=== PATIENT | female | born 1935 | race Caucasian/White ===

== ENCOUNTER 2018-05-07 12:24 | Emergency (ER) | payer MEDICARE ==
[2018-05-07 12:44] VITALS: BP 157/113
--- NOTE | 2018-05-07 13:25 | UC ---
Dental HPI - HPI Summary HPI Summary: Patient is an 83-year-old female presenting to the with complaint of left sided upper jaw swelling 2 days. She states this happened to her. In the past , but has spontaneously resolved without medications. She noticed the swelling 2 days ago and is endorsing a mild amount of pain radiating up into the ear. Denies any hearing loss or tinnitus. Patient is a denture wearer states her mouth excessive and dry. Denies any difficulty swallowing or odynophagia. Symptoms are not aggravated with chewing or swallowing, not better with rest. Denies any fevers, sweats, chills or other viral illness. - History of Current Complaint Chief Complaint: UCGeneralIllness Stated Complaint: SWOLLEN JAW Time Seen by Provider: 05/07/18 12:56 Hx Obtained From: Patient ?: No Onset/Duration: Sudden Onset Severity: Mild Pain Intensity: 6 Pain Scale Used: 0-10 Numeric - Allergies/Home Medications Allergies/Adverse Reactions: Allergies Allergy/AdvReac Type Severity Reaction Status Date / Time ciprofloxacin Allergy Unknown Verified 05/07/18 12:36 Reaction Details Influenza Virus Vaccines Allergy Palpitation Verified 05/07/18 12:35 s Home Medications: Home Medications Latanoprost/Pf [Latanoprost 0.005% Eye Drop] 1 drop .SEE ORDER BEDTIME 05/07/18 [History Confirmed 05/07/18] Metoprolol Succinate 50 mg PO DAILY 05/07/18 [History Confirmed 05/07/18] Verapamil HCl [Verapamil ER] 120 mg PO DAILY 05/07/18 [History Confirmed ] Warfarin TAB(*) [Coumadin TAB(*)] 2 mg PO DAILY 05/07/18 [History Confirmed ] PMH/Surg Hx/FS Hx/Imm Hx Previously Healthy: Yes - Surgical History Surgical History: Yes Surgery Procedure, Year, and Place: APPENDECTOMY - Family History Known Family History: Positive: None - Social History Occupation: Unemployed Lives: With Family Alcohol Use: None Substance Use Type: None Smoking Status (MU): Never Smoked Tobacco Review of Systems Constitutional: Negative Skin: Negative ENT: Other - left upper jaw swelling over parotid gland Respiratory: Negative Cardiovascular: Negative Motor: Negative Neurovascular: Negative Neurological: Negative Is Patient Immunocompromised?: No All Other Systems Reviewed And Are Negative: Yes Physical Exam Triage Information Reviewed: Yes Appearance: Well-Appearing, Well-Nourished Vital Signs: Initial Vital Signs Temp 99.5 F 05/07/18 12:39 Pulse 106 05/07/18 12:39 Resp 20 05/07/18 12:39 BP 157/113 05/07/18 12:39 Pulse Ox 97 05/07/18 12:39 Eye Exam: Normal ENT Exam: Normal ENT: Positive: Other - left upper jaw pain over L parotid gland Neck exam: Normal Neck: Positive: Supple Respiratory Exam: Normal Respiratory: Positive: Chest non-tender Musculoskeletal Exam: Normal Musculoskeletal: Positive: Strength Intact Psychological: Positive: Normal Response To Family Skin Exam: Normal Dental Complaint Course/Dx - Course Course Of Treatment: Patient is evaluated for left upper jaw swelling to her clear over the left parotid gland. Patient appears to have a parotid duct obstruction. Patient is given instructions for sour candies and to avoid the use of her dentures until healing. As symptoms have been present over 2 days, she is at risk for an infection I have given her a short course of treatment of clindamycin. She will follow up with ENT for any worsening or changing symptoms. - Differential Dx/Diagnosis Differential Diagnosis/Dx: Dental Caries, Tonsillitis Provider Diagnoses: Parotid gland obstruction Discharge - Sign-Out/Discharge Documenting (check all that apply): Patient Departure All imaging exams completed and their final reports reviewed: No Studies - Discharge Plan Condition: Stable Disposition: HOME Prescriptions: Clindamycin Cap(NF) [Clindamycin Cap 300 mg Cap(NF)] 300 mg PO Q6H #16 cap Patient Education Materials: Parotid Duct Obstruction (ED), Sialoadenitis (ED) Referrals: Matias Liang MD [Primary Care Provider] - Jeanmarie Holt MD [Medical Doctor] - Additional Instructions: Try to avoid using your dentures when possible until area heals Drink plenty of water Cleanse dentures thoroughly Sour candies as much as possible including lemon drops Clindamycin 4 times daily 4 days Please follow-up with ENT I have given you a referral - Billing Disposition and Condition Condition: STABLE Disposition: Home
== END 2018-05-07 13:25 | disposition home or self-care (01) ==
LOC: UCEAST 12:24
DX: K11.8 Other diseases of salivary glands (principal); Z88.1 Allergy status to other antibiotic agents; Z88.7 Allergy status to serum and vaccine
CPT/HCPCS: 99212; G0463

== ENCOUNTER 2019-08-01 15:53 | Emergency (ER) | payer MEDICARE ==
[2019-08-01 16:24] VITALS: BP 153/111
[2019-08-01] MEDS ORDERED: Acetaminophen TAB* 325 MG PO ONE (16:55)
--- NOTE | 2019-08-01 17:03 | UC ---
General HPI - HPI Summary HPI Summary: 84-year-old woman comes in with chief complaint of a fall and left arm pain. Just prior to arrival she tripped on some gravel in her driveway and fell onto her left side and her face. No loss of consciousness she did have a bloody nose. She did strike her nose. Bleeding is stopped bleeding. She is on Coumadin. No weakness no numbness. She has pain in the left upper humerus and decreased range of motion in that area secondary to the pain. Denies any numbness in the hands. No complaint of any shortness of breath or other injuries. - History of Current Complaint Chief Complaint: UCUpperExtremity Stated Complaint: ARM INJURY Time Seen by Provider: 08/01/19 16:48 Pain Intensity: 8 - Allergy/Home Medications Allergies/Adverse Reactions: Allergies Allergy/AdvReac Type Severity Reaction Status Date / Time ciprofloxacin Allergy Unknown Verified 08/01/19 16:25 Reaction Details Influenza Virus Vaccines Allergy Palpitation Verified 08/01/19 16:25 s PMH/Surg Hx/FS Hx/Imm Hx Previously Healthy: Yes - ON COUMADIN Cardiovascular History: Hypertension, Atrial Fibrillation - Surgical History Surgical History: Yes Surgery Procedure, Year, and Place: APPENDECTOMY - Family History Known Family History: Positive: None - Social History Alcohol Use: None Substance Use Type: None Smoking Status (MU): Never Smoked Tobacco - Immunization History Most Recent Tetanus Shot: unknown Review of Systems All Other Systems Reviewed And Are Negative: Yes Constitutional: Positive: Negative Skin: Positive: Negative Eyes: Positive: Negative ENT: Positive: Epistaxis, Other - SEE HPI Respiratory: Positive: Negative Cardiovascular: Positive: Negative Gastrointestinal: Positive: Negative Motor: Positive: Other - SEE HPI Neurovascular: Positive: Negative Musculoskeletal: Positive: Other: - SEE HPI Neurological: Positive: Negative Psychological: Positive: Negative Is Patient Immunocompromised?: No Physical Exam Triage Information Reviewed: Yes Appearance: Well-Appearing, Well-Nourished, Pain Distress - MILD WITH MOVEMENT OF LEFT ARM Vital Signs: Initial Vital Signs Temp 97.8 F 08/01/19 16:18 Pulse 85 08/01/19 16:18 Resp 16 08/01/19 16:18 BP 153/111 08/01/19 16:18 Pulse Ox 96 08/01/19 16:18 Vital Signs Reviewed: Yes Eye Exam: Normal Eyes: Positive: Conjunctiva Clear, Other: - PERRLA EOMI ENT: Positive: Other - Bilateral cerumen impaction. Patient'sswollen with an abrasion. There is dried blood in the nares. I do not see a septal hematoma. Neck: Positive: Nontender Respiratory: Positive: Lungs clear, Normal breath sounds, No respiratory distress Cardiovascular: Positive: RRR Musculoskeletal: Positive: Other: - Patient rolled her left arm at her side. She is very tender to palpation in the proximal humerus. Collar bones are nontender to palpation. Show full range of motion of the fingers and wrists. Normal capillary refill distally. Bilateral radial pulses palpated. Elbows are nontender to palpation however patient has decreased use of the elbow secondary to increased pain in the proximal humerus. Right shoulder is normal range of motion. Neurological: Positive: Alert Psychological: Positive: Age Appropriate Behavior Skin Exam: Normal Course/Dx - Course Course Of Treatment: Airplane Rigger: Flaco Schultz F ([id number]) Hand Counter: KENZIE ( KENZIE) Report Date: 08/01/2019 17:55:00 Report Status: Final ====== Start of Report Content Patient Name: NOLBERTO LEI Medical Record#: [id number] Ordering Physician: Ross Taveras MD Acct.#: [id number] : 03/1935 Age: 84 Sex: F Location: [facility] Exam Date: 08/01/191657 ADM Status: REG ER Order Information: SHOULDER LEFT SINGLE VW Accession Number: [id number] CPT: 25499 INDICATION: Left shoulder injury. TECHNIQUE: A single AP view of the humerus was obtained. FINDINGS: The bones appear osteoporotic. There is a comminuted fracture of the surgical neck of the humerus extends through the region of the greater trochanter. The fracture fragments are displaced and overriding with the shaft of the humerus displaced medial and anterior relative to the humeral head. IMPRESSION: COMMINUTED DISPLACED FRACTURE OF THE PROXIMAL HUMERUS. <Electronically signed by Flaco Schultz MD in OV> 1751 Dictated By: Flaco Schultz MD Dictated Date/Time: 08/01/191749 Transcribed Date/Time: 08/01/191749 Copy to: CC:Matias Liang MD; Ross Taveras MD Imaging - [facility] Imaging - [place] [facility] [address] [address] ph [phone]) ph ) ph ([phone]) End of Report Content Airplane Rigger: Flaco Schultz F, ([id number]) Hand Counter: KENZIE ( NUANCE) Report Date: 08/01/2019 17:57:00 Report Status: Final ====== Start of Report Content Patient Name: NOLBERTO LEI Medical Record#: [id number] Ordering Physician: Ross Taveras MD Acct.#: [id number] : 03/1935 Age: 84 Sex: F Location: [facility] Exam Date: 08/01/191656 ADM Status: REG ER Order Information: HUMERUS LEFT Accession Number: [id number] CPT: 43531 INDICATION: Left humerus injury. COMPARISON: Comparison is made with the prior x-ray study of the left shoulder. TECHNIQUE: 2 views of the left humerus were obtained. FINDINGS: Again note is made of a comminuted displaced fracture of the surgical neck of the humerus extending through the greater trochanter. The fracture fragments are displaced. No additional fracture is seen. IMPRESSION: COMMINUTED DISPLACED FRACTURE OF THE PROXIMAL HUMERUS. < Electronically signed by Flaco Schultz MD in OV> 08/01/191752 Dictated By: Flaco Schultz MD Dictated Date/Time: 08/01/191751 Transcribed Date/Time: 1751 Copy to: CC:Matias Liang MD; Ross Taveras MD Imaging - [facility] Imaging - [place] [facility] [address] [place] [address] ph ([phone]) ph ([phone]) ph ([phone]) ===== End of Report Content Airplane Rigger: Hannah Field S ([id number]) Hand Counter: KENZIE (KENZIE) Report Date: 08/01/2019 17:39:00 Report Status: Final Start of Report Content Patient Name: NOLBERTO LEI Medical Record#: [id number] Ordering Physician: Ross Taveras MD Acct.#: [id number] : 03/1935 Age: 84 Sex: F Location: [facility] Exam Date: 08/01/191654 ADM Status: REG ER Order Information: CT SPINE CERVICAL W/O Accession Number: [id number] CPT: 72038 Indication: Fall, neck injury. CT of the cervical spine performed in the axial plane. Sagittal and coronal reconstructed images were obtained. The skull base demonstrates no fracture. Mastoid air cells is unremarkable. Degenerative changes of the atlantoaxial joint is noted. The vertebral bodies appear normal in height. Disc space narrowing at C5-C6 and C6-C7 is noted. Spinal canal appears to be intact. Old ununited fracture of the C6 spinous process is noted. No recent fracture is identified. IMPRESSION: No fracture of the cervical spine is noted. 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 < Electronically signed by Hannah Field MD in OV> 08/01/191735 Dictated By: Hannah Field MD Dictated Date/Time: 08/01/191734 Transcribed Date/Time: 08/01/191734 Copy to: CC:Matias Liang MD; Ross Taveras MD Imaging - [facility] Imaging - [facility] [address] [address] ph ([phone]) ph ([phone]) ph ([phone]) End of Report Content Airplane Rigger: Flaco Schultz F ([id number]) Hand Counter: KENZIE ( NUANCE) Report Date: 08/01/2019 17:44:00 Report Status: Final ====== Start of Report Content Patient Name: NOLBERTO LEI Medical Record#: [id number] Ordering Physician: Ross Taveras MD Acct.#: [id number] : 03/1935 Age: 84 Sex: F Location: [facility] Exam Date: 08/01/191654 ADM Status: [facility] Order Information: CT MAXILLOFACIAL W/O Accession Number : [id number] CPT: 06213 INDICATION: Facial trauma. COMPARISON: There are no relevant prior studies available for comparison. TECHNIQUE: Contiguous axial sections of the axial images of the facial bones were obtained and reconstructed in the coronal and sagittal planes. FINDINGS: Soft tissue swelling is noted anterior to the frontal sinus and overlying the nose. The butler of the orbits and maxillary sinuses appear intact. The zygomatic arches appear intact. There is no evidence for a fracture of the mandible. 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 The nasal bones appear intact. There is moderate deviation of the nasal septum toward the right side. The pterygoid plates appear intact. The paranasal sinuses appear clear. IMPRESSION: NO EVIDENCE OF FRACTURE. <Electronically signed by Flaco Schultz MD in OV> 08/01/191739 Dictated By: Flaco Schultz MD Dictated Date/Time : 08/01/191735 Transcribed Date/Time: 08/01/191735 Copy to: CC:Matias Liang MD; Ross Taveras MD Imaging - [facility] Imaging - [facility] [id number] [place] [address] ph ([phone]) ph ([phone]) ([phone]) ==== End of Report Content Airplane Rigger: Noah Macario, ([id number]) Hand Counter: KENZIE (ZANEANCE) Report Date: 08/01/2019 17:37:00 Report Status: Final Start of Report Content Patient Name: NOLBERTO LEI Medical Record#: [id number] Ordering Physician: Ross Taveras MD Acct.#: [id number] : 03/1935 Age: 84 Sex: F Location: [facility] Exam Date: 08/01/191654 ADM Status: REG ER Order Information: CT BRAIN WO Accession Number: [id number] CPT: 74811 INDICATION: Fall. COMPARISON: There are no relevant prior studies available for comparison. TECHNIQUE: Contiguous axial sections of the brain were obtained from the skull base to the vertex without contrast. FINDINGS: There is no hemorrhagic focus, mass effect or midline shift. The palacios- white matter differentiation is grossly maintained without abnormal cerebral edema. Periventricular hypoattenuation, without mass effect, is nonspecific. Moderate cerebral volume loss is characterized by generalized ventriculomegaly and sulcal prominence. The basal cisterns are patent. There is no abnormal extra axial collection. The globes and orbits are symmetric. The paranasal sinuses and mastoid air cells are predominantly well aerated. IMPRESSION: 1. No acute intracranial abnormality. 2. Mild chronic small vessel ischemic disease is likely. 3. Moderate cerebral volume loss. <Electronically signed by Noah Macario MD in OV> 08/01 173 Dictated By: Noah Macario MD Dictated Date/Time: 08/01/191729 Transcribed Date/Time: 08/01/191729 Copy to: CC:Matias Liang MD; Ross Taveras MD Imaging - [facility] Imaging - [facility] Imaging - [facility] [address] [address] ph ([phone]) ph ) ph ([phone]) End of Report Content I discussed the x-rays with the patient and her daughter. I also discussed the humeral fracture with the orthopedist on-call Dr. Felipe. Patient is neurovascularly intact with strong radial pulses bilaterally normal sensation normal capillary refill. Patient was put in a sling by nursing here in clinic patient neurovascular intact after placement of the sling. Plan will be to follow-up with Dr. Felipe in the office tomorrow. If there is any worsening of the patient's condition she should go directly to the emergency department. - Diagnoses Provider Diagnosis: Left humeral fracture, Head injury, Contusion of face Discharge ED - Sign-Out/Discharge Documenting (check all that apply): Patient Departure All imaging exams completed and their final reports reviewed: Yes - Discharge Plan Condition: Stable Disposition: HOME Patient Education Materials: Proximal Humerus Fracture (ED), Head Injury (ED), Facial Contusion (ED) Referrals: Matias Liagn MD [Primary Care Provider] - Selma Lehman MD [Medical Doctor] - Additional Instructions: FOLLOW UP WITH DR LEHMAN, ORTHOPEDICS, TOMORROW, 08/02/19. GET REEVALUATED SOONER IF NOT IMPROVED OR WORSE; WEAKNESS, NUMBNESS, LOSS OF SENSATION OR CIRCULATION, CONFUSION, DIFFICULTY WITH VISION OR SPEECH OR ANY QUESTIONS OR CONCERNS. - Billing Disposition and Condition Condition: STABLE Disposition: Home
== END 2019-08-01 18:51 | disposition home or self-care (01) ==
LOC: UCEAST 15:53
DX: S42.302A Unspecified fracture of shaft of humerus, left arm, initial encounter for closed fracture (principal); S09.90XA Unspecified injury of head, initial encounter; S00.83XA Contusion of other part of head, initial encounter; I10 Essential (primary) hypertension; I48.91 Unspecified atrial fibrillation; Z88.1 Allergy status to other antibiotic agents; Z88.7 Allergy status to serum and vaccine; Z79.01 Long term (current) use of anticoagulants; W01.0XXA Fall on same level from slipping, tripping and stumbling without subsequent striking against object, initial encounter; Y92.9 Unspecified place or not applicable
CPT/HCPCS: 70450; 70486; 72125; 99213; A9270-GY; G0463